=== PATIENT | male | born 1985 | race Caucasian/White ===

== ENCOUNTER 2024-07-24 08:18 | Inpatient (IN) | payer BC ==
[2024-07-24 08:29] VITALS: BMI 30.7
[2024-07-24] MEDS ORDERED: chlordiazePOXIDE HCL 25 MG CAPSULE ONE (09:11)
[2024-07-24] MEDS ORDERED: diazePAM CARPU-JECT 10 MG/2 ML DISP.SYRIN ONE ×2 (09:11→12:03)
[2024-07-24] MEDS ORDERED: THIAMINE 100 MG TABLET ONE (09:12)
[2024-07-24] MEDS: LACTATED RINGERS SOLUTION 1000 ML INFUS.BAG IV ONE ×2 (09:24→17:17)
[2024-07-24] MEDS: THIAMINE 100 MG TABLET PO ONE (09:25)
[2024-07-24] MEDS: diazePAM CARPU-JECT 10 MG/2 ML DISP.SYRIN IVPUSH ONE ×2 (09:25→12:08)
[2024-07-24] MEDS: chlordiazePOXIDE HCL 25 MG CAPSULE PO ONE (09:25)
[2024-07-24 09:46] LABS: VENOUS BASE EXCESS 3.5 mmol/L (-2-2); VENOUS O2 SATURATION 81.8 % (70-80); VENOUS PCO2 39.8 mmHg (38-52); VENOUS PH 7.458 (7.310-7.410)
[2024-07-24 09:51] LABS: ABSOLUTE IMMATURE GRANULOCYTES 0.02 x10^3/uL (0.0-0.031); BASOPHILS # 0.04 x10^3/uL (0.01-0.08); EOSINOPHILS # 0.05 x10^3/uL (0.04-0.54); HEMATOCRIT 38.5 % (40.1-51.0); HEMOGLOBIN 12.8 g/dL (13.7-17.5); MCHC 33.2 g/dl (32.3-36.5); MEAN PLT VOLUME 11.2 fl (9.4-12.4); MONOCYTE # 0.98 x10^3/uL (0.30-0.82); MONOCYTE % 19.4 % (5.3-12.2); PLATELET COUNT 88 x10^3/uL (163-337); RDW 13.2 % (12.0-15.6)
[2024-07-24] MEDS: FOLIC ACID INJECTION - 1 MG, THIAMINE HCL 100 MG, MULTIVIT INJECTION ADULT 10 ML in SOD... IVPB ONE (10:07)
[2024-07-24 10:13] LABS: POTASSIUM 3.4 mmol/L (3.5-5.1)
[2024-07-24 10:17] LABS: CALCIUM 9.6 mg/dL (8.5-10.1)
[2024-07-24 10:18] LABS: ALBUMIN 3.6 g/dl (3.4-5.0); BLOOD UREA NITROGEN 6.3 mg/dL (7-18); MAGNESIUM 1.7 mg/dL (1.8-2.4)
[2024-07-24 10:20] LABS: CREATININE 0.6 mg/dL (0.55-1.3)
[2024-07-24 10:21] LABS: PHOSPHOROUS 1.9 mg/dL (2.5-4.9)
[2024-07-24 10:22] LABS: TOT PROT 7.4 g/dl (6.4-8.2)
[2024-07-24] MEDS ORDERED: MAGNESIUM SULFATE IN WATER 2 GM/50 ML IVPB IVPB ONE (11:16)
[2024-07-24] MEDS ORDERED: NAPH,MB-DB/K PH,MBDB POWDER PACKET ONE (11:16)
[2024-07-24] MEDS ORDERED: POTASSIUM CHLORIDE TABS 20 MEQ TABLET.ER (FP) PO ONE (11:16)
[2024-07-24 11:44] LABS: BILIRUBIN,DIRECT 5.2 mg/dL (0.0-0.2)
[2024-07-24 12:00] LABS: INR 1.57 (0.83-1.09); PROTHROMBIN TIME (PATIENT) 17.3 SEC (9.7-13.0)
[2024-07-24] MEDS: MAGNESIUM SULFATE IN WATER 2 GM/50 ML IVPB IVPB ONE (12:01)
[2024-07-24] MEDS: NAPH,MB-DB/K PH,MBDB POWDER PACKET PO ONE (12:01)
[2024-07-24] MEDS: POTASSIUM CHLORIDE TABS 20 MEQ TABLET.ER (FP) PO ONE (12:01)
[2024-07-24 12:03] LABS: ACTIVATED PTT 32.2 SECONDS (25.2-36.5)
[2024-07-24 13:22] LABS: POTASSIUM 3.2 mmol/L (3.5-5.1)
[2024-07-24 13:24] LABS: ALBUMIN 3.3 g/dl (3.4-5.0); CALCIUM 9.3 mg/dL (8.5-10.1)
[2024-07-24 13:25] LABS: BLOOD UREA NITROGEN 6.6 mg/dL (7-18)
[2024-07-24 13:26] LABS: CREATININE 0.6 mg/dL (0.55-1.3)
[2024-07-24 13:29] LABS: BILIRUBIN,TOTAL 7.5 mg/dL (0.2-1); TOT PROT 6.7 g/dl (6.4-8.2)
[2024-07-24] MEDS ORDERED: LORazepam 2 MG/ML SDV VIAL IVPUSH PRN (15:02)
[2024-07-24] MEDS: LORazepam 1 MG TABLET PO SCH (15:06)
[2024-07-24] MEDS: NYSTATIN 500,000 UNITS/5 ML SUSPENSION PO SCH (17:19)
[2024-07-24] MEDS: LORazepam 2 MG/ML SDV VIAL IVPUSH ONE (19:22)
[2024-07-24] MEDS: MIDAZOLAM HCL 5 MG/1 ML Single Dose Vial IVPUSH ONE (20:07)
[2024-07-24] MEDS ORDERED: MIDAZOLAM HCL 2 MG/2 ML SINGLE DOSE VIAL IVPUSH PRN (20:14)
[2024-07-24] MEDS: THIAMINE HCL 200 MG/2 ML VIAL IVPB ONE (21:09)
[2024-07-25] MEDS: LORazepam 2 MG/ML SDV VIAL IVPUSH SCH (00:29)
[2024-07-25 06:55] LABS: HEMATOCRIT 37.7 % (40.1-51.0); HEMOGLOBIN 12.4 g/dL (13.7-17.5); MCHC 32.9 g/dl (32.3-36.5); MEAN CELL VOLUME 101.6 fl (79.0-92.2); RDW 13.3 % (12.0-15.6)
[2024-07-25 06:56] LABS: MEAN PLT VOLUME 10.5 fl (9.4-12.4); PLATELET COUNT 101 x10^3/uL (163-337)
[2024-07-25 06:58] LABS: POTASSIUM 3.6 mmol/L (3.5-5.1)
[2024-07-25 07:05] LABS: ALBUMIN 3.3 g/dl (3.4-5.0); BLOOD UREA NITROGEN 4.8 mg/dL (7-18); CALCIUM 8.9 mg/dL (8.5-10.1)
[2024-07-25 07:07] LABS: MAGNESIUM 1.9 mg/dL (1.8-2.4)
[2024-07-25 07:09] LABS: CREATININE 0.6 mg/dL (0.55-1.3); PHOSPHOROUS 3.1 mg/dL (2.5-4.9)
[2024-07-25 07:10] LABS: BILIRUBIN,TOTAL 9.2 mg/dL (0.2-1); TOT PROT 6.6 g/dl (6.4-8.2)
[2024-07-25 07:24] LABS: INR 1.49 (0.83-1.09); PROTHROMBIN TIME (PATIENT) 16.4 SEC (9.7-13.0)
[2024-07-25 07:26] LABS: ACTIVATED PTT 31.7 SECONDS (25.2-36.5)
[2024-07-25 07:49] LABS: HCV DIAGNOSTIC IN-HOUSE W/RFLX NON-REACTIVE (NONREACTIVE)
[2024-07-25 07:51] LABS: HIV INTERPRETATION NEGATIVE (NEGATIVE)
[2024-07-25] MEDS: THIAMINE HCL 200 MG/2 ML VIAL IVPB SCH (10:05)
[2024-07-25] MEDS: MULTIVITAMINS (DAILY MVI) TABLET (FP) PO SCH (10:05)
[2024-07-25] MEDS: FOLIC ACID 1 MG TABLET (FP) PO SCH (10:05)
[2024-07-25] MEDS: NICOTINE 7 MG/24 HOURS TOPICAL PATCH TD SCH (10:06)
[2024-07-25] MEDS: HEPARIN NA (PORCINE) 5,000 UNITS/ML 1ML VIAL SQ SCH (22:01)
[2024-07-26] MEDS ORDERED: LORazepam 1 MG TABLET PO SCH (05:00)
[2024-07-26] MEDS: LORazepam 2 MG/ML SDV VIAL IVPUSH SCH ×2 (05:31→17:14)
[2024-07-26 06:31] LABS: POTASSIUM 3.6 mmol/L (3.5-5.1)
[2024-07-26 06:36] LABS: ALBUMIN 3.1 g/dl (3.4-5.0); BLOOD UREA NITROGEN 7.5 mg/dL (7-18)
[2024-07-26 06:37] LABS: CALCIUM 8.8 mg/dL (8.5-10.1); MAGNESIUM 1.6 mg/dL (1.8-2.4)
[2024-07-26 06:39] LABS: CREATININE 0.6 mg/dL (0.55-1.3); PHOSPHOROUS 3.6 mg/dL (2.5-4.9)
[2024-07-26 06:40] LABS: BILIRUBIN,TOTAL 8.4 mg/dL (0.2-1); TOT PROT 6.3 g/dl (6.4-8.2)
[2024-07-26 06:51] LABS: INR 1.68 (0.83-1.09); PROTHROMBIN TIME (PATIENT) 18.3 SEC (9.7-13.0)
[2024-07-26 09:46] LABS: HEMATOCRIT 38.1 % (40.1-51.0); HEMOGLOBIN 12.6 g/dL (13.7-17.5); MCHC 33.1 g/dl (32.3-36.5); MEAN CELL VOLUME 104.4 fl (79.0-92.2); MEAN PLT VOLUME 10.4 fl (9.4-12.4); PLATELET COUNT 115 x10^3/uL (163-337); RDW 13.2 % (12.0-15.6)
[2024-07-26] MEDS: PHYTONADIONE 10 MG/1 ML AMP IVPB ONE (13:45)
[2024-07-26] MEDS: prednisoLONE SODIUM PHOSPHATE 15 MG/5 ML ORAL SOLN BOTTLE PO SCH (15:30)
[2024-07-26] MEDS ORDERED: MIDAZOLAM HCL 2 MG/2 ML SINGLE DOSE VIAL IVPUSH PRN (16:40)
[2024-07-26] MEDS ORDERED: LORazepam 2 MG/ML SDV VIAL IVPUSH PRN (16:40)
[2024-07-26] MEDS: HEPARIN NA (PORCINE) 5,000 UNITS/ML 1ML VIAL SQ SCH (22:12)
[2024-07-27] MEDS ORDERED: LORazepam 2 MG/ML SDV VIAL IVPUSH SCH (05:00)
[2024-07-27] MEDS ORDERED: LORazepam 0.5 MG TABLET PO SCH (05:00)
[2024-07-27] MEDS: LORazepam 2 MG/ML SDV VIAL IVPUSH SCH (05:19)
[2024-07-27 08:32] LABS: HEMATOCRIT 39.8 % (40.1-51.0); HEMOGLOBIN 12.9 g/dL (13.7-17.5); MCHC 32.4 g/dl (32.3-36.5); MEAN CELL VOLUME 102.3 fl (79.0-92.2); PLATELET COUNT 164 x10^3/uL (163-337); RDW 13.2 % (12.0-15.6)
[2024-07-27 08:56] LABS: POTASSIUM 4.2 mmol/L (3.5-5.1)
[2024-07-27 09:08] LABS: INR 1.62 (0.83-1.09); PROTHROMBIN TIME (PATIENT) 17.7 SEC (9.7-13.0)
[2024-07-27] MEDS: MULTIVITAMINS (DAILY MVI) TABLET (FP) PO SCH (09:08)
[2024-07-27] MEDS: NICOTINE 7 MG/24 HOURS TOPICAL PATCH TD SCH (09:08)
[2024-07-27] MEDS: THIAMINE HCL 200 MG/2 ML VIAL IVPB SCH (09:09)
[2024-07-27] MEDS: prednisoLONE SODIUM PHOSPHATE 15 MG/5 ML ORAL SOLN BOTTLE PO SCH (09:09)
[2024-07-27] MEDS: FOLIC ACID 1 MG TABLET (FP) PO SCH (09:10)
[2024-07-27 09:11] LABS: ALBUMIN 3.2 g/dl (3.4-5.0); BLOOD UREA NITROGEN 9.1 mg/dL (7-18); MAGNESIUM 2.1 mg/dL (1.8-2.4)
[2024-07-27 09:14] LABS: CREATININE 0.6 mg/dL (0.55-1.3)
[2024-07-27 09:15] LABS: PHOSPHOROUS 5.5 mg/dL (2.5-4.9)
[2024-07-27 09:16] LABS: BILIRUBIN,TOTAL 6.8 mg/dL (0.2-1); TOT PROT 6.9 g/dl (6.4-8.2)
[2024-07-27 10:06] VITALS: RESP 18
[2024-07-28 08:26] VITALS: BP 117/90; PULSE 100; TEMP 97.9
[2024-07-28 08:53] LABS: ABSOLUTE IMMATURE GRANULOCYTES 0.02 x10^3/uL (0.0-0.031); BASOPHILS # 0.04 x10^3/uL (0.01-0.08); EOSINOPHIL % 0.7 % (0.8-7.0); EOSINOPHILS # 0.04 x10^3/uL (0.04-0.54); HEMATOCRIT 41.5 % (40.1-51.0); HEMOGLOBIN 13.5 g/dL (13.7-17.5); MCHC 32.5 g/dl (32.3-36.5); MEAN PLT VOLUME 10.1 fl (9.4-12.4); MONOCYTE # 0.84 x10^3/uL (0.30-0.82); MONOCYTE % 13.9 % (5.3-12.2); PLATELET COUNT 202 x10^3/uL (163-337); RDW 13.3 % (12.0-15.6)
[2024-07-28 08:59] LABS: INR 1.55 (0.83-1.09); PROTHROMBIN TIME (PATIENT) 17.1 SEC (9.7-13.0)
[2024-07-28 09:12] LABS: POTASSIUM 3.5 mmol/L (3.5-5.1)
[2024-07-28 09:21] LABS: BLOOD UREA NITROGEN 12.6 mg/dL (7-18)
[2024-07-28 09:22] LABS: ALBUMIN 3.3 g/dl (3.4-5.0); CALCIUM 9.6 mg/dL (8.5-10.1)
[2024-07-28 09:25] LABS: BILIRUBIN,TOTAL 5.8 mg/dL (0.2-1); CREATININE 0.7 mg/dL (0.55-1.3)
[2024-07-28 09:26] LABS: PHOSPHOROUS 3.9 mg/dL (2.5-4.9)
== END 2024-07-28 14:05 | disposition other institution (70) | DRG 280 ==
LOC: JER 08:18 → JERBED 12:00 → J2W 14:52 → J6S 07-26 16:37
PROVIDERS: ADMIT Internal Medicine; ATTEND Internal Medicine
PROC: HZ2ZZZZ Detoxification Services for Substance Abuse Treatment (ICD-10-PCS; principal; 2024-07-24)
DX: K70.30 Alcoholic cirrhosis of liver without ascites (principal); K70.10 Alcoholic hepatitis without ascites; B37.0 Candidal stomatitis; K76.6 Portal hypertension; D69.6 Thrombocytopenia, unspecified; R16.0 Hepatomegaly, not elsewhere classified; E80.6 Other disorders of bilirubin metabolism; E87.6 Hypokalemia; F10.232 Alcohol dependence with withdrawal with perceptual disturbance; R44.0 Auditory hallucinations; R91.1 Solitary pulmonary nodule
CPT/HCPCS: 0241U-QW; 36415; 71045-TC-FY; 71250-TC; 74182-TC; 76705-TC; 80053; 80307; 82010; 82140; 82248; 82607; 82728; 82746; 82803; 82962; 83540; 83550; 83690; 83735; 84100; 84443; 85025; 85027; 85610; 85730; 86704; 86708; 86803; 86850; 86900; 86901; 87340; 87389; 87517; 93005; 93010; 99285-25; J1644